=== PATIENT | female | born 1955 ===

== ENCOUNTER 2024-12-21 14:14 | Emergency (ER) | payer MEDICARE, MEDICAID, SELFPAY ==
--- NOTE | 2024-12-21 14:15 | RT.EKG_ITS ---
APPROVED REPORT Exam: Resting ECG Reason for Exam: SOB Patient Location: E HR:87 bpm ECG Measurements Heart Rate 87 AXIS NJ 213 P 27 QRSd 76 QRS -14 QT 348 T 39 QTc 420 Conclusion Sinus rhythm...normal P axis, V-rate 60- 99 Borderline prolonged NJ interval...NJ >212, V-rate 50- 90
[2024-12-21 14:20] VITALS: BP 111/55; PULSE 89; RESP 18; TEMP 37.2; O2SAT 90
--- NOTE | 2024-12-21 14:27 | W.ED.GENAD ---
Discharge Plan Disposition Patient Disposition: Home Condition: Stable Discharge Details Clinical Impression: Chronic hyperglycemia Primary Care Provider: Unknown,Unknown ED Provider: Rios Poole Home Meds and New Rx's Prescriptions: Continued amlodipine 10 mg tablet 10 mg PO DAILY hydrochlorothiazide 25 mg tablet 25 mg PO BID ibuprofen [IBU] 800 mg tablet 800 mg PO TID insulin isophane beef 100 unit/mL suspension 40 unit subcut BID metformin 1,000 mg tablet 1,000 mg PO BID omeprazole 20 mg capsule,delayed release(DR/EC) 20 mg PO DAILY Mounjaro 15 mg/0.5 mL pen injector 15 mg subcut QWEEK trazodone 50 mg tablet 50 mg PO QHS PRN valsartan [Diovan] 320 mg tablet 320 mg PO DAILY Held insulin degludec [Tresiba FlexTouch U-100] 100 unit/mL (3 mL) insulin pen 80 unit subcut ONCE Hold Instructions: Resume on 12/27/24. Start taking it when she has good p.o. intake No Action atorvastatin [Lipitor] 40 mg tablet 40 mg PO QHS escitalopram oxalate 20 mg tablet 20 mg PO DAILY gabapentin 600 mg tablet 600 mg PO BID Discharge Instructions Instructions: Blood Glucose Monitoring Discharge Data Discharge Physician: Rios Poole HPI General Date/Time Provider Initiated Documentation: 12/21/24 14:27. HPI Narrative: Patient presents emergency department after she was seen twice at [facility] for vomiting diarrhea 2 days ago that had improved with home and came back yesterday and was seen by me there at [facility] again for diarrhea and the fact that she had taken her insulin causing hypoglycemia. I admitted her to the hospital where she spent 1 day and she was discharged about an hour ago. According to them she felt better was discharged home and her daughter brought her here to an [facility] for the daughter was not her impression that she was going to be placed in a penitentiary. She states now that she is better she has no diarrhea no vomiting. She does express mild shortness of breath but she has been nonambulatory for a while and she was diagnosed with an early pneumonia which she was given antibiotics at [facility]. Related Data Home Medications ?Medication ?Instructions ?Recorded ?Confirmed amlodipine 10 mg tablet 10 mg PO DAILY 12/21/24 12/21/24 atorvastatin 40 mg tablet (Lipitor) 40 mg PO QHS 12/21/24 12/21/24 escitalopram oxalate 20 mg tablet 20 mg PO DAILY 12/21/24 12/21/24 gabapentin 600 mg tablet 600 mg PO BID 12/21/24 12/21/24 hydrochlorothiazide 25 mg tablet 25 mg PO BID 12/21/24 12/21/24 ibuprofen 800 mg tablet (IBU) 800 mg PO TID 12/21/24 12/21/24 insulin degludec 100 unit/mL (3 80 unit subcut ONCE 12/21/24 12/21/24 mL) subcutaneous pen (Tresiba FlexTouch U-100 insulin) insulin isophane beef 100 unit/mL 40 unit subcut BID 12/21/24 12/21/24 subcutaneous suspension metformin 1,000 mg tablet 1,000 mg PO BID 12/21/24 12/21/24 omeprazole 20 mg capsule,delayed 20 mg PO DAILY 12/21/24 12/21/24 release tirzepatide 15 mg/0.5 mL 15 mg subcut QWEEK 12/21/24 12/21/24 subcutaneous pen injector (Jolanta) trazodone 50 mg tablet 50 mg PO QHS PRN 12/21/24 12/21/24 valsartan 320 mg tablet (Diovan) 320 mg PO DAILY 12/21/24 12/21/24 Allergies Allergy/AdvReac Type Severity Reaction Status Date / Time WILLIS Inhibitors Allergy Swelling/Ed Verified 12/21/24 14:28 malaika [id number] Reductase Allergy Other (See Verified 12/21/24 14:28 Inhibitor Comment) amlodipine AdvReac Headache Verified 12/21/24 14:28 cyclobenzaprine AdvReac Nausea Verified 12/21/24 14:28 General Stated Complaint: SOB NANO: 3 Review of Systems Narrative: Review of Systems: Constitutional: No fevers, chills, sweats Eye: No recent visual problems ENT: No ear pain, nasal congestion, sore throat Respiratory: No shortness of breath, cough Cardiovascular: No Chest pain, palpitations, syncope Gastrointestinal: No nausea, vomiting, diarrhea Genitourinary: No hematuria Regulo/Lymph: Negative for bruising tendency, swollen lymph glands Endocrine: Negative for excessive thirst, excessive hunger Musculoskeletal: No back pain, neck pain, joint pain, muscle pain, decreased range of motion Integumentary: No rash, pruritus, abrasions Neurologic: Alert & oriented X 4 Psychiatric: No anxiety, depression Exam Narrative Exam Narrative: Exam; vitals signs as reported above normal Constitutional; In no acute distress, afebrile General: cooperative, healthy appearing, comfortable and no acute distress HEENT: Head: normal to inspection, no palpable skull fracture and normocephalic atraumatic Eyes: : appearance normal, both eyes and all related structures EOM intact bilaterally Pupils: PERRL : conjunctiva normal Direct ophthalmoscopy: normal light reflex, normal conjunctiva, normal visual acuity Ears: Normal TM, normal external canal Nose: normal no rhinorreha Neck no JVD, supple non tender Neck: normal visual inspection, full ROM and no lymphadenopathy Chest: normal inspection of the chest Respiratory : normal respiratory effort and able to speak in complete sentences no wheezing no rales Cardio Rate: regular rate, rhythm: regular rhythm normal heart sounds S1 and S2 no murmurs, gallops, or rubs GI : normal to inspection, normal bowel sounds, soft, non tender, non distended, no organomegaly Back/Spine/ no CVA tenderness Thoracic/Lumbar Spine: no tenderness or deformities Skin no rashes or lesions Neuro: patient alert oriented x 4 and no meningeal signs, Cranial Nerves: CN's II-XI intact bilaterally, Cognition: normal cognition, Speech: speech normal, Gait: normal gait, Depp tendon reflexes normal 2+ muscle strength 5/5 bilaterally Extremities, no edema, full range of motion, normal strength Course Vital Signs Vital signs: Vital Signs Temperature 37.2 C 12/21/24 14:20 Pulse 89 12/21/24 14:20 Respiratory Rate 18 12/21/24 14:20 Blood Pressure 111/55 L 12/21/24 14:20 Pulse Oximetry 90 L 12/21/24 14:20 Temperature 37.2 C 12/21/24 14:20 Pulse 89 12/21/24 14:20 Respiratory Rate 18 12/21/24 14:20 Blood Pressure 111/55 L 12/21/24 14:20 Pulse Oximetry 90 L 12/21/24 14:20 Oxygen Delivery Method Room Air 12/21/24 14:20 Oxygen Flow Rate 0 12/21/24 14:20 Pain Level 0 12/21/24 14:20 Medical Decision Making MDM: Summary: Patient presented to the emergency department after she had been admitted and discharged from [facility] for an episode of gastroenteritis diarrhea and early pneumonia. Labs actually look improved after she there was dehydrated and with acute renal failure. Her creatinine is now at 0.7. The issue was that she and her daughter were unsure if she was can be placed in penitentiary as she decided come to this hospital but I spoke with [facility]'s psychiatric social worker supervisor who already has set in place for her to be at her penitentiary in the next few days. She has an appoint with her primary care physician on Thursday Dr. Padgett. Labs look unremarkable and unchanged from yesterday she is a little anemic hypoalbuminemic and hypocalcemic although she has had a bout of diarrhea for the last 4 days she feels good and her oxygen saturation now is 95% on room air. Data Review Analysis All the data on this patient was reviewed by me including laboratory and imaging studies as well as bedside studies performed by me Independent review of Studies Imaging Chest x-ray does not show any significant abnormality Lab: Labs are improved from that was taken at [facility] yesterday where her initial creatinine was 2 to and now it is back to 0.7 Risk Stratification: Patient with episode of gastroenteritis was admitted at another hospital and should appear today mostly for she wants placement at a rehab facility I spoke with the other hospital and they have set up so that will happen today she will be discharged home with her daughter Differential Diagnosis: 1. Gastroenteritis 2. Pneumonia 3. Dehydration 4. 5. Consultants: Spoke with psychiatric social worker supervisor in [facility] to set up her disposition to a penitentiary which shouted [place] in next few days Shared disposition: Patient and daughter understand disposition and agree and will follow-up with psychiatric social worker supervisor to Impression: Medical Records Medical records narrative: Bucky German ECG Data Attestation: I personally reviewed and interpreted this ECG (s) as follows: Prior ECG tracings: available for review Interpretation: I read 87 normal sinus rhythm no acute ST-T changes PFSH All Active Problems (Updated 12/21/24 @ 15:57 by Rios Poole MD) Chronic hyperglycemia (Acute) Social History Smoking/Tobacco Use Status: Never Smoking risk assessment performed?: Yes Alcohol Intake: current Alcohol Intake frequency: a few times a week Substance use type: does not use Housing: apartment Do you feel safe at home: Yes Do you feel safe in your relationship?: Yes
--- NOTE | 2024-12-21 15:00 | DI.RAD_ITS ---
Exam(s) XR CHEST 2V PA LATERAL EXAM: XR CHEST 2V PA LATERAL CLINICAL HISTORY: sob. TECHNIQUE: 2D digital imaging was performed. COMPARISON: No exams were available for comparison FINDINGS: 2 views: Cardiomegaly noted. The mediastinum is not widened There is small bilateral pleural effusions, approximately equal in size. No airspace pulmonary edema. No obvious fractures. No pneumothorax.. Lungs are clear. No infiltrates nor pleural effusions. IMPRESSION: Small bilateral pleural effusions. Cardiomegaly.Correlation with any clinical signs of impending pulmonary edema recommended. There are no Tone B lines and there is no airspace pulmonary edema. DATA REPOSITORY: RADIATION DOSE DELIVERED:
[2024-12-21 15:04] LABS: HCT 34.5 % (36.0-46.0); HGB 10.7 g/dL (11.2-15.7); MCH 25.7 pg (27.0-33.0); MCHC 31.0 % (32.0-36.0); MCV 83 fL (80-95); MPV 10.7 fL (8.0-11.0); Platelet Count 239 10^3/uL (130-400); RBC 4.17 10^6/uL (3.93-5.22); RDW 14.4 % (11.7-14.6); RDW-SD 43.6 fL; WBC 9.52 10^3/uL (4.4-10.8)
[2024-12-21 15:27] LABS: ALT 20 U/L (14-59); AST 14 U/L (15-37); Albumin 2.8 g/dL (3.4-5.0); Alkaline Phosphatase 85 U/L (46-116); Anion Gap 7.0 mmol/L (3-11); BUN 18 mg/dL (7-18); Bilirubin, Total 0.5 mg/dL (0.2-1.0); CO2 27.0 mmol/L (21.0-32.0); Calcium 7.9 mg/dL (8.5-10.1); Chloride 104 mmol/L (98-107); Estimated GFR 79.22 (mL/min/1.73m2); Glucose 211 mg/dL (74-106); Lipase 80 U/L (<78); Potassium 4.5 mmol/L (3.5-5.1); Sodium 138 mmol/L (136-145); Total Protein 7.1 g/dL (6.4-8.2)
[2024-12-21] MEDS: Ibuprofen 400 MG TAB PO (15:40)
[2024-12-21 16:10] VITALS: BP 140/57; PULSE 84; RESP 16; O2SAT 95
== END 2024-12-21 16:15 | disposition home or self-care (01) ==
PROVIDERS: Emergency Provider Emergency Medicine Emergency Medical Services
DX: R73.9 Hyperglycemia, unspecified (principal); R94.31 Abnormal electrocardiogram [ECG] [EKG]; Z79.4 Long term (current) use of insulin; Z79.85 Long-term (current) use of injectable non-insulin antidiabetic drugs; Z79.84 Long term (current) use of oral hypoglycemic drugs
CPT/HCPCS: 80053; 82962; 83690; 85027; 93005; 99284; 71046; 83735; 84484; 85025; 93010